=== PATIENT | male | born 1965 | race American Indian/Alaskan Native ===

== ENCOUNTER 2016-10-04 09:12 | Day surgery (SDC) | payer MEDICAID ==
[2016-10-04] MEDS ORDERED: Sodium Chloride 0.9% 500 ML IV ONE (11:00)
[2016-10-04] MEDS ORDERED: Ciprofloxacin 400mg/200ml D5W 400 MG/200 ML BAG IVPB ONE (11:16)
[2016-10-04] MEDS ORDERED: Gentamicin 80 mg in 0.9% NS 160 MG/200 ML BAG IVPB ONE (11:16)
[2016-10-04] MEDS ORDERED: Lidocaine 2% Jelly (Uro-Jet) ONE (11:17)
[2016-10-04] MEDS ORDERED: Midazolam 2 MG/2 ML VIAL ONE (11:35)
[2016-10-04] MEDS ORDERED: Propofol 10 mg/ml Inj (20 ML) ONE (11:35)
[2016-10-04] MEDS ORDERED: HYDROmorphone 0.5 mg/0.5 ml ISec IVP PRN (11:37)
--- NOTE | 2016-10-04 12:02 | PCM.SURG1 ---
Surgeon's Initial Post Op Note - Surgeon's Notes Surgeon: he Summons Server: [place] Type of Anesthesia: General LMA Anesthesia Administered By: staff Pre-Operative Diagnosis: [place] six Operative Findings: bph w min handy Post-Operative Diagnosis: BPH prostate ca chuy 6 Operation Performed: cysto/prostate us/us guided trans rectal Bx Specimen/Specimens Removed: 12 core bx Estimated Blood Loss: EBL {In ML}: 0 Blood Products Given: N/A Drains Used: No Drains Post-Op Condition: Good Date of Surgery/Procedure: 10/04/16 Time of Surgery/Procedure: 12:02
[2016-10-04 12:23] VITALS: O2SAT 100
[2016-10-04] MEDS ORDERED: Lactated Ringer's 500 ML IV ONE (12:37)
[2016-10-04 12:41] VITALS: RESP 18
--- NOTE | 2016-10-04 12:44 | OP ---
PROCEDURE DATE: 10/04/2016 PREOPERATIVE DIAGNOSIS: Prostate cancer, [place] 6. POSTOPERATIVE DIAGNOSIS: Prostate cancer, [place] 6. PROCEDURE: Cystoscopy and transrectal prostate biopsy. DESCRIPTION OF PROCEDURE: The procedure is as follows: Prior to the procedure, the patient signed a detailed informed consent. He is aware of all the risks and complications of prostate biopsy and cy stoscopy and the other methods of following prostate cancer. The patient consents to the procedure a nd is willing to accept the risks. He was brought into the room and time-out was taken according to the rules and regulations of [facility]. The patient was then draped and prepped in the usual kenn. After receiving prophylactic antibiotics, he underwent a Betadine enema and the patient under went ultrasonography. The ____ guide and the ultrasonography were used to take a 12 core biopsy, whi ch was done without any difficulties. There was no rectal bleeding. The patient was then redraped a nd prepped and cystoscoped with a #21 Storz panendoscope. The pendulous and membranous urethra were normal. The prostatic urethra showed minimal trilobar hypertrophy. The bladder was entered atraumat ically. There was no evidence of urothelial tumor or stone. There was no evidence of bleeding. Bot h ureteral orifices effluxed clear urine. Based on the above findings, biopsy will determine further therapy of his previously diagnosed [place] 6 prostate cancer and whether to modify watchful waiting decision. Clifford Duque MD cc: [id number] TT: 10/04/2016 12:38:51 sn
[2016-10-04 13:37] VITALS: BP 136/80; PULSE 64; TEMP 98
== END 2016-10-04 13:15 | disposition home or self-care (01) ==
LOC: C.SDS 09:12
PROVIDERS: ATTEND Urology
DX: C61 Malignant neoplasm of prostate (principal)
CPT/HCPCS: 52000; 55700; 76872; 88305; J0744; J1580; J2250; J2704; J3010; J7040; J7120